=== PATIENT | male | born 2005 | race Hispanic/Latino ===

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

== ENCOUNTER 2025-02-06 16:53 | Emergency (ER) | payer OTHER, SELFPAY ==
[2025-02-06 18:14] LABS: Absolute Lymphocytes (CBC) 2.0 K/uL (0.7-4.9); Hematocrit 43.8 % (39.6-49.0); Hemoglobin 14.9 g/dL (13.6-17.9); MCH 29.6 pg (27.0-35.0); MCHC 34.0 g/dL (32.0-36.0); MCV 87.1 fL (80-100); MPV 8.7 fL (7.6-11.3); Nucleated RBC Absolute Count 0.0 (0-0); Nucleated Red Blood Cells % 0.5 % (0-0); RBC Red Blood Cell Count 5.03 M/uL (4.33-5.43); White Blood Count 7.40 thou/uL (4.3-10.9)
[2025-02-06 18:31] LABS: ALT/SGPT 34.0 U/L (16-61); AST/SGOT 14.0 U/L (15-37); Albumin 4.2 g/dL (3.4-5.0); Albumin/Globulin Ratio 1.5 (1.1-1.8); Alkaline Phosphatase 72.0 U/L (45-117); Anion Gap 8.7 mEq/L (5.0-15.0); BUN Blood Urea Nitrogen 11.0 mg/dL (7-18); Globulin 2.8 g/dL (2.3-3.5); Glucose Level 103.0 mg/dL (74-106); Lipase 23.0 U/L (13-75); Potassium 3.7 mEq/L (3.5-5.1)
--- NOTE | 2025-02-06 19:22 | RAD REPORT ---
EXAMINATION: CT Abdomen Pelvis W Contrast CLINICAL INDICATION: Male, 19 years old. ABD PAIN TECHNIQUE: CT abdomen and pelvis was performed, after the administration of IV contrast, as per [facility] protocol. Axial, sagittal and coronal reconstructions were obtained. One or more of the following dose reduction techniques were used: Automated exposure control, adjustment of the mA and k V according to patient size, and iterative reconstruction. Unless otherwise specified, incidental findings do not require dedicated imaging follow-up. COMPARISON: 06/08/2022 FINDINGS: LOWER CHEST: The visualized lung bases are clear. LIVER: Normal in size and contour. No focal lesion. BILIARY SYSTEM: No suspicious abnormalities. SPLEEN: Normal size. No focal lesion. PANCREAS: No mass, ductal dilation, or connie-pancreatic fluid. ADRENALS: Normal; no mass. KIDNEYS: Normal size and contour. No hydronephrosis. URINARY BLADDER: Unremarkable. GASTROINTESTINAL TRACT: No evidence of free air, significant intra-abdominal free fluid, bowel obstru ction or abscess. APPENDIX: Normal appendix. LYMPH NODES: No lymphadenopathy. MUSCULOSKELETAL: No acute or suspicious osseous abnormality. ADDITIONAL FINDINGS: None. IMPRESSION: No acute or concerning abnormalities seen in the abdomen or pelvis.
--- NOTE | 2025-02-06 19:37 | EDPHYS ---
Physician Documentation [facility] Name: Benny Noland Age: 19 yrs Sex: Male : 2005 Arrival Date: 02/06/2025 Time: 16:53 Bed 9 Private MD: ED Physician Laz Abernathy HPI: 02/06 18:21 This 19 yrs old Male presents to ER via Ambulatory with complaints of sb4 Abdominal Pain - RLQ. 18:21 Patient reports right lower quadrant abdominal pain for 5 days now. States that it is sb4 not getting any better or worse, but it is not going away. States it is worse with laying down and walking. No nausea, vomiting, diarrhea, constipation. Is eating and drinking normally. No fever or chills. Historical: - Allergies: 17:04 No Known Allergies; dd2 - PMHx: 17:04 None; dd2 - PSHx: 17:04 None; dd2 - Immunization history:: Adult Immunizations unknown. - Infectious Disease History:: Denies. - Social history:: Smoking status: Patient denies any tobacco usage or history of. ROS: 18:21 Constitutional: Negative for fever, chills, and weight loss, sb4 18:21 Abdomen/GI: Positive for abdominal pain, 18:21 All other systems are negative, Exam: 18:21 Constitutional: This is a well developed, well nourished patient who is awake, alert, sb4 and in no acute distress. Head/Face: Normocephalic, atraumatic. Eyes: Extra-ocular motions intact. Periorbital areas with no swelling, redness, or edema. ENT: Mucous membranes moist. Cardiovascular: Regular rate and rhythm with a normal S1 and S2. Respiratory: No increased work of breathing, no retractions or nasal flaring. Abdomen/GI: Soft, non-tender, no distension. Skin: Warm, dry with normal turgor. Normal color with no rashes, no lesions, and no evidence of cellulitis. Vital Signs: 17:04 BP 130 / 61; Pulse 69; Resp 16; Temp 98.4; Pulse Ox 100% on R/A; Weight 95.25 kg; dd2 Height 6 ft. 0 in. ; Pain 5/10; 17:53 BP 142 / 79; Pulse 69; Resp 18; Temp 98.5; Pulse Ox 98% ; Weight 95.25 kg; Height 6 ft. hw 0 in. ; Pain 4/10; 18:57 BP 123 / 71; Pulse 66; Resp 18; Pulse Ox 100% on R/A; kj2 19:45 BP 122 / 66; Pulse 67; Resp 18; Temp 98; Pulse Ox 100% on R/A; kj2 17:53 Body Mass Index 28.48 (95.25 kg, 182.88 cm) hw 17:04 Pain Scale: Adult dd2 17:53 Pain Scale: Adult hw MDM: 17:07 Medical Screening Exam initiated sb4 18:21 Differential diagnosis: appendicitis, non-specific abd pain, Mesenteric adenitis, sb4 constipation. 19:37 Data reviewed: vital signs, nurses notes, lab test result(s), radiologic studies, and sb4 as a result, I will discharge patient. Counseling: I had a detailed discussion with the patient and/or guardian regarding the historical points, exam findings, and any diagnostic results supporting the discharge/admit diagnosis, lab results, radiology results, the need for outpatient follow up, for definitive care, to return to the emergency department if symptoms worsen or persist or if there are any questions or concerns that arise at home. Special discussion: Based on the patient's Hx, exam, and Dx evaluation, there is no indication for emergent surgery or inpatient Tx. It is understood by the patient/guardian that if the Sx's persist or worsen they need to return immediately for re-evaluation. 02/06 17:09 Order name: CBC with Diff; Complete Time: 18:17 sb4 02/06 17:09 Order name: CMP; Complete Time: 18:33 sb4 02/06 17:09 Order name: Lipase; Complete Time: 18:33 sb4 02/06 17:09 Order name: CT Abd/Pelvis - IV Contrast Only; Complete Time: 19:32 sb4 02/06 17:09 Order name: IV Saline Lock; Complete Time: 18:28 sb4 02/06 17:09 Order name: Labs collected and sent; Complete Time: 18:28 sb4 Administered Medications: No medications were administered Disposition: 19:08 I was immediately available on-site in the Emergency Department for consultation in the ms3 care of the patient. Disposition Summary: 02/06/25 19:36 Discharge Ordered Notes: Location: Home sb4 Problem: an ongoing problem sb4 Symptoms: are unchanged sb4 Condition: Stable sb4 Diagnosis - Lower abdominal pain, unspecified sb4 Followup: sb4 - With: Emergency Department - When: As needed - Reason: Trouble breathing, Worsening of condition Discharge Instructions: - Discharge Summary Sheet sb4 - Pain Without a Known Cause sb4 - Abdominal Pain, Adult, Ciol-wm-Tdeg sb4 Forms: - Patient Portal Instructions sb4 - Leadership Thank You Letter sb4 Signatures: Dispatcher [employer] EDMS Laz Abernathy, DO ms3 Josseline Acuna, PA-C PA-C sb4 JESSICA MONSALVE RN RN dd2
--- NOTE | 2025-02-06 19:37 | ER ---
Nurse's Notes [facility] Name: Benny Noland Age: 19 yrs Sex: Male : 2005 Arrival Date: 02/06/2025 Time: 16:53 Bed 9 Private MD: Diagnosis: Lower abdominal pain, unspecified Presentation: 02/06 17:02 Chief complaint: Patient states: RT LOWER STOMACH PAIN STARTING WEDNESDAY NIGHT. REPORTS dd2 CONSTANT PAIN THAT WORSENS WITH WALKING AND POSITION CHANGE. PT DENIES N/V, DIARRHEA OR CONSTIPATION. Coronavirus screen: At this time, the client does not indicate any symptoms associated with coronavirus-19. Ebola Screen: No symptoms or risks identified at this time. Risk Assessment: Do you want to hurt yourself or someone else? Patient reports no desire to harm self or others. Onset of symptoms was February 01, 2025. 17:02 Method Of Arrival: Ambulatory dd2 17:02 Acuity: SPENSER 3 dd2 17:04 Initial Sepsis Screen: Does the patient meet any 2 criteria? No. Patient's initial dd2 sepsis screen is negative. Does the patient have a suspected source of infection? No. Patient's initial sepsis screen is negative. Triage Assessment: 17:04 General: Appears in no apparent distress. comfortable, Behavior is calm, cooperative, dd2 appropriate for age. Pain: Complains of pain in right lower quadrant. GI: Abdomen is non-distended, Abd is soft and non tender X 4 quads. Reports lower abdominal pain. Historical: - Allergies: 17:04 No Known Allergies; dd2 - PMHx: 17:04 None; dd2 - PSHx: 17:04 None; dd2 - Immunization history:: Adult Immunizations unknown. - Infectious Disease History:: Denies. - Social history:: Smoking status: Patient denies any tobacco usage or history of. Screenin:45 [facility] ED Fall Risk Assessment (Adult) History of falling in the last 3 months, kj2 including since admission No falls in past 3 months (0 pts) Confusion or Disorientation No (0 pts) Intoxicated or Sedated No (0 pts) Impaired Gait No (0 pts) Mobility Assist Device Used No (0 pt) Altered Elimination No (0 pt) Score/Fall Risk Level 0 - 2 = Low Risk Maintained a safe environment, Hourly rounding (assess needs \T\ fall precautionary measures) done. Abuse screen: Denies threats or abuse. Denies injuries from another. Nutritional screening: No deficits noted. Tuberculosis screening: No symptoms or risk factors identified. Assessment: 17:40 General: Appears in no apparent distress. Behavior is calm, cooperative. Pain: kj2 Complains of pain in abdomen and right lower quadrant Pain currently is 6 out of 10 on a pain scale. Neuro: Level of Consciousness is awake, alert, obeys commands, Oriented to person, place, time, situation. Cardiovascular: Patient's skin is warm and dry. Respiratory: Airway is patent Respiratory effort is even, unlabored. GI: Bowel sounds present X 4 quads. : No signs and/or symptoms were reported regarding the genitourinary system. 18:40 Reassessment: Patient appears in no apparent distress at this time. Patient and/or kj2 family updated on plan of care and expected duration. Pain level reassessed. Patient is alert, oriented x 3, equal unlabored respirations, skin warm/dry/pink. 19:40 Reassessment: Patient appears in no apparent distress at this time. Patient and/or kj2 family updated on plan of care and expected duration. Pain level reassessed. Patient is alert, oriented x 3, equal unlabored respirations, skin warm/dry/pink. Vital Signs: 17:04 BP 130 / 61; Pulse 69; Resp 16; Temp 98.4; Pulse Ox 100% on R/A; Weight 95.25 kg; dd2 Height 6 ft. 0 in. ; Pain 5/10; 17:53 BP 142 / 79; Pulse 69; Resp 18; Temp 98.5; Pulse Ox 98% ; Weight 95.25 kg; Height 6 ft. hw 0 in. ; Pain 4/10; 18:57 BP 123 / 71; Pulse 66; Resp 18; Pulse Ox 100% on R/A; kj2 19:45 BP 122 / 66; Pulse 67; Resp 18; Temp 98; Pulse Ox 100% on R/A; kj2 17:53 Body Mass Index 28.48 (95.25 kg, 182.88 cm) 17:04 Pain Scale: Adult dd2 17:53 Pain Scale: Adult hw ED Course: 16:54 Patient arrived in ED. cj3 16:56 Josseline Acuna PA-C is PHCP. sb4 16:56 Laz Abernathy DO is Attending Physician. sb4 17:04 Triage completed. dd2 17:04 Arm band placed on left wrist. dd2 17:40 Patient has correct armband on for positive identification. Bed in low position. Call kj2 light in reach. Provided Education on: call light. 18:11 Sydney Lee, RN is Primary Nurse. kj2 18:28 CMP Sent. kj2 18:48 CT Abd/Pelvis - IV Contrast Only In Process Unspecified. EDMS 20:01 No provider procedures requiring assistance completed. Patient did not have IV access kj2 during this emergency room visit. Administered Medications: No medications were administered Medication: 20:02 VIS not applicable for this client. kj2 Outcome: 19:36 Discharge ordered by MD. sb4 20:02 Discharged to home ambulatory, kj2 20:02 Condition: stable 20:02 Discharge instructions given to patient, family, Instructed on discharge instructions, follow up and referral plans. Demonstrated understanding of instructions, follow-up care, 20:03 Patient left the ED. kj2 Signatures: Dispatcher [employer] EDMS Josseline Acuna, NAV[employer] PA-C sb4 Sydney Lee, RN RN kj2 JESSICA MONSALVE RN RN dd2 Kandy Guzman Celeste cj3 Corrections: (The following items were deleted from the chart) 17:07 17:04 Pulse 69bpm; Resp 16bpm; Pulse Ox 100% RA; Temp 98.4F; 95.25 kg; Height 6 ft. 0 dd2 in.; BMI: 28.4; Pain 5/10, Adult; dd2
[2025-02-06 22:58] VITALS: O2SAT 100
[2025-02-06 22:59] VITALS: BP 122/66; TEMP 98
== END 2025-02-06 20:03 | disposition home or self-care (01) ==
LOC: ER 16:53
DX: R10.31 Right lower quadrant pain (principal)
CPT/HCPCS: 36415; 74177; 80053; 83690; 85025; 99283; Q9967